=== PATIENT | male | born 1970 | race Caucasian/White ===

== ENCOUNTER 2017-08-05 03:25 | Emergency (ER) | payer OTHER ==
[2017-08-05 03:38] VITALS: BP 181/105
--- NOTE | 2017-08-05 04:02 | EDM.PDOC ---
ED HPI GENERAL MEDICAL PROBLEM - General Chief Complaint: ENT Problem Stated Complaint: SINUS INFECTION Time Seen by Provider: 08/05/17 03:45 Source of Information: Reports: Patient History Limitations: Reports: No Limitations - History of Present Illness INITIAL COMMENTS - FREE TEXT/NARRATIVE: 46-year-old male who gets a sinus infection that he is convinced needs antibiotic treatment about once every 2-3 years. I saw him 2 years ago with similar symptoms and he responded to clindamycin. He had a cold that started 2 weeks ago, waxed and waned and he thought he had it beat but four days ago started developing intense maxillary sinus pressure worse on the right. It is now worked its way to the left side as well, the other cold symptoms have resolved. No fevers or chills, but he has developed enough pressure and pain that he is having difficulty sleeping Onset: Gradual (Over the past several days) Location: Reports: Face Quality: Reports: Ache, Pressure Severity: Moderate Associated Symptoms: Reports: Cough (Cough over the past 2 weeks is markedly improved, almost gone). Denies: Nausea/Vomiting Face Pain Score (Numeric/FACES): 6 - Related Data Allergies Allergy/AdvReac Type Severity Reaction Status Date / Time No Known Allergies Allergy Verified 08/05/17 03:40 Home Meds: Home Meds Metoprolol Succinate 100 mg PO QAM 06/25/15 [History] Past Medical History Other HEENT History: teeth removed Cardiovascular History: Reports: Hypertension Respiratory History: Reports: Asthma Other Dermatologic History: eczema - Past Surgical History Other HEENT Surgeries/Procedures: adnoids Other Musculoskeletal Surgeries/Procedures:: L2 FX Social & Family History - Tobacco Use Smoking Status *Q: Unknown Ever Smoked - Alcohol Use Days Per Week of Alcohol Use: 2 Number of Drinks Per Day: 2 Total Drinks Per Week: 4 - Recreational Drug Use Recreational Drug Use: No ED ROS ENT - Review of Systems Review Of Systems: See Below Constitutional: Reports: Malaise. Denies: Fever, Chills HEENT: Reports: Sinus Problem Respiratory: Reports: Cough GI/Abdominal: Denies: Nausea, Vomiting Skin: Reports: No Symptoms Neurological: Reports: Headache ED EXAM, ENT - Physical Exam Exam: See Below Exam Limited By: No Limitations General Appearance: Alert, No Apparent Distress (Looks uncomfortable but not distressed) Eye Exam: Bilateral Eye: Normal Inspection Ears: Normal TMs Nose: Other (He does have percussion tenderness over both maxillary sinuses) Mouth/Throat: Normal Inspection Head: Atraumatic Respiratory/Chest: No Respiratory Distress, Lungs Clear Course - Vital Signs Last Recorded V/S: Last Vital Signs Temp 96.4 F 08/05/17 03:36 Pulse 55 L 08/05/17 03:36 Resp 15 08/05/17 03:36 BP 181/105 H 08/05/17 03:36 Pulse Ox 96 08/05/17 03:36 - Re-Assessments/Exams Free Text/Narrative Re-Assessment/Exam: 08/05/17 04:00 Patient will be treated again with clindamycin 300 mg 3 times a day for 10 days. He will recheck in 2-3 days if not starting to improve satisfactorily. Departure - Departure Time of Disposition: 04:09 Disposition: Home, Self-Care 01 Condition: Good Clinical Impression: Sinusitis Qualifiers: Sinusitis location: maxillary Chronicity: subacute Qualified Code(s): J01.00 - Acute maxillary sinusitis, unspecified - Discharge Information Instructions: Sinusitis, Adult, [id number] Referrals: Aron Sánchez PA-C [Primary Care Provider] - Forms: ED Department Discharge Care Plan Goals: Take antibiotic as prescribed, recheck in 2-3 days if not starting to improve satisfactorily. Warm compresses to the face may help. Return sooner if worsening such as persistent fever, increased pain or vomiting the medication.
== END 2017-08-05 04:10 | disposition home or self-care (01) ==
LOC: JP.ED 03:25
DX: J01.00 Acute maxillary sinusitis, unspecified (principal); I10 Essential (primary) hypertension
CPT/HCPCS: 99283

== ENCOUNTER 2019-06-15 21:33 | Emergency (ER) | payer MEDICAID, OTHER ==
[2019-06-15] MEDS ORDERED: Aspirin 81 MG Tab.Chew PO ONE (21:50)
[2019-06-15] MEDS ORDERED: Sodium Chloride 0.9% 10 ML Syringe FLUSH PRN (21:50)
--- NOTE | 2019-06-15 22:00 | EDM.PDOC ---
ED HPI GENERAL MEDICAL PROBLEM - General Chief Complaint: Cardiovascular Problem Stated Complaint: CHEST PAINS Time Seen by Provider: 06/15/19 21:45 Source of Information: Reports: Patient, Old Records History Limitations: Reports: No Limitations - History of Present Illness INITIAL COMMENTS - FREE TEXT/NARRATIVE: 48 yo male with a pHx of HTN, but not afib presents about 10 min after he suddenly developed a rapid, irregular heart rhythm associated with mild chest pressure. Has no hx of CAD. Denies heavy ETOH use. No hx of afib. Does snore a lot at night. Onset: Today, Sudden Onset Date: 06/15/19 Onset Time: 21:15 Duration: Minutes:, Constant Location: Reports: Chest Quality: Reports: Pressure (mild) Severity: Mild Improves with: Reports: Rest Worsens with: Reports: Movement Context: Reports: Other (see HPI) Associated Symptoms: Reports: Chest Pain (mild pressure). Denies: Nausea/ Vomiting, Shortness of Breath Treatments CIVIL PREPAREDNESS COORDINATOR: Reports: Other (see below) (none) chest pressure Pain Score (Numeric/FACES): 3 - Related Data Allergies Allergy/AdvReac Type Severity Reaction Status Date / Time No Known Allergies Allergy Verified 06/15/19 21:44 Home Meds: Home Meds Metoprolol Succinate 100 mg PO QAM 06/25/15 [History] Cetirizine [ZyrTEC] 10 mg PO DAILY 06/15/19 [History] Ipratropium [Atrovent HFA] 1 - 2 puff INH Q6H 06/15/19 [History] traMADol [Ultram] 50 mg PO DAILY 06/15/19 [History] Past Medical History Other HEENT History: teeth removed Cardiovascular History: Reports: Hypertension Respiratory History: Reports: Asthma Gastrointestinal History: Reports: GERD Musculoskeletal History: Reports: Arthritis, Fracture Neurological History: Reports: Concussion Endocrine/Metabolic History: Reports: Obesity/BMI 30+ Other Dermatologic History: eczema - Past Surgical History HEENT Surgical History: Reports: Adenoidectomy, Tonsillectomy Cardiovascular Surgical History: Reports: None Respiratory Surgical History: Reports: None Musculoskeletal Surgical History: Reports: Arthroscopic Knee Social & Family History - Tobacco Use Smoking Status *Q: Never Smoker - Caffeine Use Caffeine Use: Reports: Coffee, Energy Drinks, Soda, Tea - Recreational Drug Use Recreational Drug Use: No ED ROS GENERAL - Review of Systems Review Of Systems: See Below Constitutional: Reports: No Symptoms HEENT: Reports: No Symptoms Respiratory: Reports: No Symptoms Cardiovascular: Reports: Chest Pain, Palpitations GI/Abdominal: Reports: No Symptoms : Reports: No Symptoms Musculoskeletal: Reports: No Symptoms Skin: Reports: No Symptoms Neurological: Reports: No Symptoms ED EXAM, GENERAL - Physical Exam Exam: See Below Exam Limited By: No Limitations General Appearance: Alert, WD/WN, No Apparent Distress Eye Exam: Bilateral Eye: PERRL Ears: Normal External Exam, Normal Canal, Hearing Grossly Normal, Normal TMs Ear Exam: Bilateral Ear: Auricle Normal, Canal Normal, TM normal Nose: Normal Inspection, No Blood Throat/Mouth: Normal Inspection, Normal Lips, Normal Oropharynx, Normal Voice, No Airway Compromise Head: Atraumatic, Normocephalic Neck: Normal Inspection, Supple, Non-Tender Respiratory/Chest: No Respiratory Distress, Lungs Clear, Normal Breath Sounds, No Accessory Muscle Use Cardiovascular: No Edema, Tachycardia, Irregularly Irregular GI/Abdominal: Normal Bowel Sounds, Soft, Non-Tender, No Distention Back Exam: Normal Inspection. No: CVA Tenderness (R), CVA Tenderness (L) Extremities: Normal Inspection, Normal Range of Motion, Non-Tender, No Pedal Edema Neurological: Alert, Oriented, CN II-XII Intact, Normal Cognition, No Motor/ Sensory Deficits Psychiatric: Normal Affect, Normal Mood Skin Exam: Warm, Dry, Intact, Normal Color, No Rash EKG INTERPRETATION EKG Date: 06/15/19 Time: 21:35 Rhythm: A-Fib Rate (Beats/Min): 129 [place]: Normal P-Wave: Absent QRS: Normal ST-T: Normal QT: Normal Comparison: NA - No Prior EKG (afib with RVR) Course - Vital Signs Last Recorded V/S: Last Vital Signs Temp 36.5 C 06/15/19 21:35 Pulse 111 H 06/15/19 21:56 Resp 14 06/15/19 21:56 BP 170/102 H 06/15/19 21:56 Pulse Ox 97 06/15/19 21:56 - Orders/Labs/Meds Orders: Active Orders 24 hr Category Date Time Status Cardiac Monitoring [RC] .As Directed Care 06/15/19 21:46 Active EKG Documentation Completion [RC] ASDIRECTED Care 06/15/19 21:46 Active Sodium Chloride 0.9% [Saline Flush] Med 06/15/19 21:50 Active 10 ml FLUSH ASDIRECTED PRN Saline Lock Insert [OM.PC] Routine Oth 06/15/19 21:50 Ordered EKG 12 Lead [EK] Routine Ther 06/15/19 21:46 Ordered Medication Orders Sodium Chloride (Saline Flush) 10 ml FLUSH ASDIRECTED PRN PRN Reason: Keep Vein Open Last Admin: 06/15/19 21:59 Dose: 10 ml Labs: Laboratory Tests 06/15/19 06/15/19 06/15/19 Range/Units 21:57 21:57 22:34 WBC 10.2 (4.5-11.0) K/uL RBC 5.76 (4.30-5.90) M/uL Hgb 16.7 H (12.0-15.0) g/dL Hct 50.8 (40.0-54.0) % MCV 88 (80-98) fL MCH 29 (27-31) pg MCHC 33 (32-36) % Plt Count 291 (150-400) K/uL Sodium 140 (140-148) mmol/L Potassium 3.7 (3.6-5.2) mmol/L Chloride 101 (100-108) mmol/L Carbon Dioxide 29 (21-32) mmol/L Anion Gap 10.4 (5.0-14.0) mmol/L BUN 16 (7-18) mg/dL Creatinine 1.3 (0.8-1.3) mg/dL Est Cr Clr Drug Dosing 62.71 mL/min Estimated GFR (MDRD) 59 L (>60) Glucose 122 H (74-106) mg/dL Calcium 9.6 (8.5-10.1) mg/dL Troponin I < 0.017 (0.000-0.056) ng/mL TSH, Ultra Sensitive 1.024 (0.358-3.740) uIU/mL Meds: Medications Generic Name Dose Route Start Last Admin Trade Name Freq PRN Reason Stop Dose Admin Sodium Chloride 10 ml 06/15/19 21:50 06/15/19 21:59 Saline Flush FLUSH 10 ml ASDIRECTED PRN Administration Keep Vein Open Discontinued Medications Generic Name Dose Route Start Last Admin Trade Name Freq PRN Reason Stop Dose Admin Aspirin 324 mg 06/15/19 21:50 06/15/19 21:58 Aspirin PO 06/15/19 21:51 324 mg ONETIME ONE Administration Propofol Confirm 06/15/19 22:52 Diprivan 20 Ml Administered 06/15/19 22:53 Dose 200 mg .ROUTE .STK-MED ONE - Re-Assessments/Exams Free Text/Narrative Re-Assessment/Exam: 06/15/19 23:13 Cardioverted at 200J synchronized to NSR. Feels better. Anesthesia was here for sedation with propofol. Departure - Departure Time of Disposition: 23:25 Disposition: Home, Self-Care 01 Condition: Good Clinical Impression: Atrial fibrillation with RVR, Snoring Referrals: PCP,None [Primary Care Provider] - Forms: ED Department Discharge Additional Instructions: Have your pay attention to whether or not you stop breathing when you are sleeping/snoring, if so you should request a sleep study through your family doctor. Return if your atrial fibrillation returns. - My Orders Last 24 Hours: My Active Orders 06/15/19 21:46 Cardiac Monitoring [RC] .As Directed EKG Documentation Completion [RC] ASDIRECTED EKG 12 Lead [EK] Routine 06/15/19 21:50 Sodium Chloride 0.9% [Saline Flush] 10 ml FLUSH ASDIRECTED PRN Saline Lock Insert [OM.PC] Routine - Assessment/Plan Last 24 Hours: My Active Orders 06/15/19 21:46 Cardiac Monitoring [RC] .As Directed EKG Documentation Completion [RC] ASDIRECTED EKG 12 Lead [EK] Routine 06/15/19 21:50 Sodium Chloride 0.9% [Saline Flush] 10 ml FLUSH ASDIRECTED PRN Saline Lock Insert [OM.PC] Routine
[2019-06-15] MEDS ORDERED: Propofol 200 MG/20 ML SDV ONE (22:52)
[2019-06-15 23:15] VITALS: BP 105/62; PULSE 72
== END 2019-06-15 23:24 | disposition home or self-care (01) ==
LOC: JP.ED 21:33
DX: I48.91 Unspecified atrial fibrillation (principal); R06.83 Snoring; I10 Essential (primary) hypertension; J45.909 Unspecified asthma, uncomplicated; E66.9 Obesity, unspecified; Z68.35 Body mass index [BMI] 35.0-35.9, adult; Z79.899 Other long term (current) drug therapy
CPT/HCPCS: 36415; 80048; 84443; 84484; 85027; 92960; 93005; 99284; 99285; A9270; J2704